=== PATIENT | female | born 1965 | race Caucasian/White ===

== ENCOUNTER 2023-05-26 12:36 | Inpatient (IN) ==
[2023-05-26 14:07] VITALS: BMI 32.5
[2023-05-26] MEDS ORDERED: NS 1,000 ML IV 1,000 ML IV ONE ×2 (14:11)
[2023-05-26 14:53] LABS: BASOPHILS # (AUTO) 0.1 X10^3/uL (0.0-0.1); BASOPHILS % (AUTO) 0.7 % (0.2-1.0); EOSINOPHILS # (AUTO) 3.2 x10^3/uL (0.0-0.2); HEMATOCRIT 28.5 % (36.0-47.0); HEMOGLOBIN 9.6 g/dL (12.0-16.0); LYMPHOCYTES # (AUTO) 1.9 X10^3/uL (1.3-2.9); LYMPHOCYTES % (AUTO) 12.1 % (21.0-51.0); MEAN CORPUSCULAR HEMOGLOBIN 32.1 pg (27.0-34.0); MEAN CORPUSCULAR HGB CONC 33.9 g/dL (33.0-35.0); MEAN CORPUSCULAR VOLUME 94.9 fL (80.0-100.0); MEAN PLATELET VOLUME 10.7 fL (7.4-11.0); MONOCYTES % (AUTO) 6.5 % (0.0-13.0); NEUTROPHILS # (AUTO) 9.1 x10^3/uL (2.2-4.8); NEUTROPHILS % (AUTO) 59.7 % (42.0-75.0); PLATELET COUNT 147 X10^3/uL (150.0-450.0); WHITE BLOOD COUNT 15.3 X10^3/uL (3.6-10.0)
[2023-05-26] MEDS ORDERED: NS 1,000 ML IV 1,000 ML IV SCH (15:00)
[2023-05-26 15:03] LABS: ALANINE AMINOTRANSFERASE 75 Units/L (12-78); ALBUMIN 2.9 g/dL (3.4-5.0); ALKALINE PHOSPHATASE 724 Units/L (46-116); ASPARTATE AMINO TRANSFERASE 56 Units/L (15-37); BLOOD UREA NITROGEN 57 mg/dL (7-18); CALCIUM 8.2 mg/dL (8.5-10.1); CARBON DIOXIDE 22.4 mmol/L (21-32); CHLORIDE 97 mmol/L (98-107); COR CA(FOR HYPOALB) 9.1 mg/dL (8.5-10.1); GLUCOSE 100 mg/dL (65-99); POTASSIUM 3.4 mmol/L (3.5-5.1); SODIUM 132 mmol/L (136-145); TOTAL PROTEIN 5.2 g/dL (6.4-8.2); eGFR NON BLACK RACES 16 (>60)
[2023-05-26 15:11] LABS: INR 1.09 (0.8-1.3)
[2023-05-26 15:18] LABS: LACTIC ACID 1.9 mmol/L (0.4-2.0)
[2023-05-26] MEDS ORDERED: NS 1,000 ML IV 1,000 ML with POTASSIUM CHLORIDE INJ 10 MEQ VIAL 10 MEQ IV PRN ×2 (15:20)
[2023-05-26 15:21] LABS: MAGNESIUM 1.9 mg/dL (2.0-2.9); PHOSPHORUS 3.8 mg/dL (2.6-4.7)
[2023-05-26 15:41] LABS: PLATELET MORPHOLOGY COMMENT NORMAL (NORMAL)
[2023-05-26 15:48] LABS: ABG BASE EXCESS -1.3 mmol/L (-2.0-2.0); ABG HCO3 22.7 mmol/L (22-26)
[2023-05-26 15:49] LABS: ABG ALLEN TEST POS
[2023-05-26] MEDS: NS 1,000 ML IV 1,000 ML with POTASSIUM CHLORIDE INJ 10 MEQ VIAL 10 MEQ IV SCH ×2 (16:15)
[2023-05-26] MEDS: HEPARIN SODIUM INJ 5000 UNITS SC SCH (18:38)
[2023-05-26] MEDS: COLACE CAP 100 MG PO SCH (20:49)
[2023-05-26] MEDS ORDERED: ULTRAM PO PRN (20:51)
[2023-05-26 21:22] LABS: APPEARANCE,URINE CLOUDY (CLEAR); BACTERIA,URINE 2+ /HPF (NEGATIVE); COLOR,URINE ORANGE (YELLOW); HYALINE CASTS, URINE MANY /LPF (NEGATIVE); RENAL EPITHELIAL CELLS,URINE FEW /HPF (NEGATIVE); SQUAMOUS EPITHELIAL CELL,UR FEW /HPF (NEGATIVE)
[2023-05-27] MEDS: NS 1,000 ML IV 1,000 ML with POTASSIUM CHLORIDE INJ 10 MEQ VIAL 10 MEQ IV SCH ×4 (00:05→07:42)
[2023-05-27] MEDS: HEPARIN SODIUM INJ 5000 UNITS SC SCH ×3 (01:56→17:41)
[2023-05-27 05:17] LABS: BASOPHILS % (AUTO) 0.3 % (0.2-1.0); EOSINOPHILS # (AUTO) 4.6 x10^3/uL (0.0-0.2); EOSINOPHILS % (AUTO) 33.4 % (0.9-2.9); HEMATOCRIT 26.7 % (36.0-47.0); HEMOGLOBIN 9.1 g/dL (12.0-16.0); LYMPHOCYTES # (AUTO) 1.4 X10^3/uL (1.3-2.9); LYMPHOCYTES % (AUTO) 10.3 % (21.0-51.0); MEAN CORPUSCULAR HEMOGLOBIN 32.3 pg (27.0-34.0); MEAN CORPUSCULAR HGB CONC 34.1 g/dL (33.0-35.0); MEAN CORPUSCULAR VOLUME 94.6 fL (80.0-100.0); MEAN PLATELET VOLUME 10.8 fL (7.4-11.0); MONOCYTES # (AUTO) 0.6 x10^3/uL (0.3-0.8); MONOCYTES % (AUTO) 4.5 % (0.0-13.0); NEUTROPHILS % (AUTO) 51.5 % (42.0-75.0); PLATELET COUNT 144 X10^3/uL (150.0-450.0); RED BLOOD COUNT 2.82 X10^6/uL (3.5-5.4); RED CELL DISTRIBUTION WIDTH 14.2 % (11.6-16.5); WHITE BLOOD COUNT 13.7 X10^3/uL (3.6-10.0)
[2023-05-27 05:24] LABS: ALANINE AMINOTRANSFERASE 64 Units/L (12-78); ALBUMIN 2.4 g/dL (3.4-5.0); ALKALINE PHOSPHATASE 692 Units/L (46-116); ASPARTATE AMINO TRANSFERASE 72 Units/L (15-37); BLOOD UREA NITROGEN 55 mg/dL (7-18); CALCIUM 7.9 mg/dL (8.5-10.1); CARBON DIOXIDE 23.9 mmol/L (21-32); CHLORIDE 101 mmol/L (98-107); COR CA(FOR HYPOALB) 9.2 mg/dL (8.5-10.1); CREATININE 2.76 mg/dL (0.55-1.02); GLUCOSE 81 mg/dL (65-99); POTASSIUM 3.6 mmol/L (3.5-5.1); SODIUM 134 mmol/L (136-145); TOTAL PROTEIN 4.5 g/dL (6.4-8.2); eGFR NON BLACK RACES 19 (>60)
[2023-05-27 05:44] LABS: BAND NEUTROPHILS % 5 % (0-10)
[2023-05-27 05:45] LABS: PLATELET MORPHOLOGY COMMENT NORMAL (NORMAL); SCHISTOCYTES SLIGHT
[2023-05-27] MEDS: ZOFRAN INJ 4 MG VIAL IVP PRN ×2 (08:12→17:41)
--- NOTE | 2023-05-27 09:03 | EKG ---
Test Reason : HYPOTENSION, SHOCK Blood Pressure : */* mmHG Vent. Rate : 73 BPM Atrial Rate : 73 BPM P-R Int : 180 ms QRS Dur : 94 ms QT Int : 452 ms P-R-T Axes : 56 5 39 degrees QTc Int : 497 ms Normal sinus rhythm Prolonged QT Abnormal ECG Confirmed by Iván Zaidi ([id number]) on 05/28/2023 6:50:44 AM Referred By: Confirmed By: Iván Zaidi
--- NOTE | 2023-05-27 09:14 | RAD ---
HISTORYMyelomaSTUDYAP chestCOMPARISONNoneFINDINGSHeart size normal with clear lungs and pleural spaces. There is no mediastinal or hilar enlargement, pneumonia or CHF. Metallic clothing artifacts are projected over the center of the mediastinum.IMPRESSIONNo active chest disease demonstrated.Electronically signed by: PATRICA DOMINGUEZ (May 27, 2023 09:08:48)
[2023-05-27] MEDS ORDERED: PHARMACY CONSULT - TPN XX SCH (10:00)
--- NOTE | 2023-05-27 10:01 | DR.H&P ---
H&P - History & Physical for Day of: H&P Date: 05/26/23 - Chief Complaint Chief Complaint: WEAKNESS, SYNCOPE, DIZZINESS, LEFT FOOT PAIN AND SWELLING, LOW BLOOD PRESSURE - History of Present Illness History of Present Illness: IS A 58 YEAR OLD PATIENT OF OURS. SHE PRESENTED TO THE OFFICE ON 05/26 WITH COMPLAINTS OF INCREASING WEAKNESS, SYNCOPE, DIZZINESS, LEFT FOOT PAIN AND SWELLING, AND LOW BLOOD PRESSURE. SHE HAS A CURRENT HISTORY OF MULTIPLE MYELOMA AND IS STATUS POST BONE MARROW TRANSPLANT. BONE MARROW TRANSPLANT WAS AT THE END OF FEBRUARY OF THIS YEAR. OTHER PMH INCLUDES: TIA, HTN, ARTHRITIS, RIGHT ARM SURGERY. WHILE IN THE OFFICE, HER BLOOD PRESSURE WAS NOTED TO BE 70s/40s. DECISION WAS MADE TO ADMIT PATIENT TO THE HOSPITAL OBSERVATION STATUS FOR FURTHER EVALUATION AND TREATMENT OF DEHYDRATION, SHOCK, SYNCOPE, GENERALIZED WEAKNESS, MULTIPLE MYELOMA, S/P BONE MARROW TRANSPLANT. ON ARRIVAL TO THE HOSPTIAL, HER VITALS WERE 97.9-90-23-85%RA-79/49. SHE WAS PLACED ON OXYGEN VIA NASAL CANNULA AT 2 LPM. SATURATIONS INCREASED TO THE 90s. LABS WERE OBTAINED. WBC 15.3, RBC 3.00, HGB 9.6, HCT 28.5, PLT COUNT 147, SODIUM 134, POTASSIUM 3.6, CHLORIDE 101, CARBON DIOXIDE 23.9, BUN 55, CREATININE 2.76, GLUCOSE 81, CALCIUM 7.9, TOTAL BILI 2.40, AST 72, ALT 64, ALK PHOS 692, CREATINE KINASE 13, TROPONIN 14.0, TOTAL PROTEIN 4.5, ALBUMIN 2.4. AN ABG WAS OBTAINED AND REVEALED: PH 7.420, PC02 35, P02 120, HC03 22.7, 02 SAT 99, A-A GRADIENT 36, FI02 28. URINALYSIS WAS OBTAINED AND REVEALED: WBC 5-10, RBC 3-5, BACTERIA 2+. A URINE CULTURE WAS SET UP. BLOOD CULTURES WERE ALSO SET UP. A CHEST XRAY WAS OBTAINED AND REVEALED: NO ACTIVE CHEST DISEASE DEMONSTRATED. EKG REVEALED: NORMAL SINUS RHYTHM WITH HR 73 BPM. SHE WAS GIVEN TWO 1 LITER NORMAL SALINE BOLUSES. SHE WAS THEN STARTED ON NORMAL SALINE AT 125 ML/HR, ALBUMIN 25% IV DAILY, INVANZ IV DAILY, HEPARIN 5000 UNITS SC Q8H, COLACE 100MG HX, ZOFRAN 4MG IV Q4H. WE WILL REVIEW HER HOME MEDICATIONS. WE WILL ALSO CONSULT PHARMACY FOR TPN. WE WILL OBTAIN A LEFT FOOT XRAY DUE TO PAIN AND SWELLING. OTHERWISE, WE WILL FOLLOW-UP WITH AM LABS AND CONTINUE TO MONITOR. TIME SPENT ON CLINICAL ASSESSMENT, REVIEWING LABS AND IMAGING, DECISION MAKING, AND DOCUMENTATION GRATER THAN 75 MINUTES. - Past Medical History Past Medical History: Arthritis, Hypertension Additional Medical History: MULTIPLE MYELOMA, TIA - Past Surgical History Surgical History: Ortho Surgery Additional Surgical History: BONE MARROW TRANSPLANT - Family History Family Medical History: Diabetes Mellitus, Heart Failure - Social History Does patient currently use any type of tobacco product: No Have you used tobacco products in the last 12 months: No Alcohol Use: None Drug Use: None - Review of Systems Constitutional: Weakness Eyes: No Symptoms Reported ENT: No Symptoms Reported Respiratory: No Symptoms Reported Cardiovascular: Light Headedness Gastrointestinal: No Symptoms Reported Genitourinary: No Symptoms Reported Musculoskeletal: Foot Pain (LEFT ) Skin: No Symptoms Reported Neurological: Weakness - Physical Exam Vital Signs: Vital Signs Temperature 98.5 F Temperature 98.0 F Pulse Rate 81 Pulse Rate 92 Pulse Rate 82 Pulse Rate 90 Pulse Rate 87 Pulse Rate 91 Pulse Rate 83 Pulse Rate 83 Pulse Rate 85 Pulse Rate 84 Pulse Rate 86 Pulse Rate 81 Pulse Rate 79 Pulse Rate 78 Pulse Rate 93 Pulse Rate 83 Pulse Rate 82 Pulse Rate 82 Pulse Rate 90 Pulse Rate 85 Pulse Rate 89 Pulse Rate 91 Pulse Rate 100 Pulse Rate 94 Pulse Rate 92 Pulse Rate 86 Pulse Rate 83 Pulse Rate 82 Pulse Rate 83 Pulse Rate 80 Pulse Rate 81 Pulse Rate 80 Pulse Rate 81 Pulse Rate 83 Pulse Rate 79 Respiratory Rate 17 Respiratory Rate 19 Respiratory Rate 18 Respiratory Rate 20 Respiratory Rate 19 Respiratory Rate 26 Respiratory Rate 18 Respiratory Rate 21 Respiratory Rate 37 Respiratory Rate 19 Respiratory Rate 19 Respiratory Rate 17 Respiratory Rate 21 Respiratory Rate 17 Respiratory Rate 48 Respiratory Rate 26 Respiratory Rate 19 Respiratory Rate 33 Respiratory Rate 21 Respiratory Rate 19 Respiratory Rate 15 Respiratory Rate 19 Respiratory Rate 19 Respiratory Rate 18 Respiratory Rate 14 Respiratory Rate 18 Respiratory Rate 18 Respiratory Rate 19 Respiratory Rate 27 Respiratory Rate 20 Respiratory Rate 18 Respiratory Rate 17 Respiratory Rate 18 Respiratory Rate 20 Respiratory Rate 20 Blood Pressure 87/48 Blood Pressure 96/54 Blood Pressure 96/54 Blood Pressure 76/46 Blood Pressure 80/48 Blood Pressure 80/48 Blood Pressure 86/52 Blood Pressure 86/52 Blood Pressure 84/46 Blood Pressure 84/46 Blood Pressure 100/56 Blood Pressure 100/56 Blood Pressure 90/55 Blood Pressure 90/55 O2 Sat by Pulse Oximetry 95 O2 Sat by Pulse Oximetry 95 O2 Sat by Pulse Oximetry 94 O2 Sat by Pulse Oximetry 94 O2 Sat by Pulse Oximetry 96 O2 Sat by Pulse Oximetry 96 O2 Sat by Pulse Oximetry 96 O2 Sat by Pulse Oximetry 96 O2 Sat by Pulse Oximetry 96 O2 Sat by Pulse Oximetry 91 O2 Sat by Pulse Oximetry 100 O2 Sat by Pulse Oximetry 100 O2 Sat by Pulse Oximetry 98 O2 Sat by Pulse Oximetry 98 O2 Sat by Pulse Oximetry 96 O2 Sat by Pulse Oximetry 95 O2 Sat by Pulse Oximetry 95 O2 Sat by Pulse Oximetry 97 O2 Sat by Pulse Oximetry 95 O2 Sat by Pulse Oximetry 96 O2 Sat by Pulse Oximetry 96 O2 Sat by Pulse Oximetry 96 O2 Sat by Pulse Oximetry 96 O2 Sat by Pulse Oximetry 96 O2 Sat by Pulse Oximetry 96 O2 Sat by Pulse Oximetry 96 O2 Sat by Pulse Oximetry 97 O2 Sat by Pulse Oximetry 97 O2 Sat by Pulse Oximetry 97 O2 Sat by Pulse Oximetry 97 O2 Sat by Pulse Oximetry 96 O2 Sat by Pulse Oximetry 96 O2 Sat by Pulse Oximetry 96 O2 Sat by Pulse Oximetry 96 O2 Sat by Pulse Oximetry 96 Oriented: Normal Eyes: Normal Ear: Normal Nose: Normal Throat: Normal Respiratory: Diminished Throughout Cardiovascular: Normal : Normal Auscultation: Bowel Sounds: Normal Palpation: Normal Tenderness: Normal Skin: Decreased Turgur Musculoskeletal: Left, Foot, Swelling, Tender Psychiatric: Normal Mood Description: Calm Affect: Normal Speech Pattern: Clear - Assessment/Plan (1) Acute renal failure Qualifiers: Acute renal failure type: unspecified Qualified Code(s): N17.9 - Acute kidney failure, unspecified Status: Acute Plan: ADMIT, NORMAL SALINE AT 125 ML/HR, ALBUMIN 25% IV DAILY, INVANZ IV DAILY, HEPARIN 5000 UNITS SC Q8H, COLACE 100MG HX, ZOFRAN 4MG IV Q4H. REVIEW HOME MEDICATIONS. CONSULT PHARMACY FOR TPN. PT/OT (2) Urinary tract infection Qualifiers: Urinary tract infection type: acute cystitis Hematuria presence: with hematuria Qualified Code(s): N30.01 - Acute cystitis with hematuria Status: Acute (3) Shock Status: Acute (4) Syncope Qualifiers: Syncope type: unspecified Qualified Code(s): R55 - Syncope and collapse Status: Acute (5) Generalized weakness Status: Acute (6) Multiple myeloma Qualifiers: Multiple myeloma remission status: unspecified Qualified Code(s): C90.00 - Multiple myeloma not having achieved remission Status: Chronic (7) Status post bone marrow transplant Status: Chronic Plan: REVERSE PRECAUTIONS - Allergies Allergies/Adverse Reactions: Allergies Allergy/AdvReac Type Severity Reaction Status Date / Time No Known Drug Allergies Allergy Unknown Verified 07/10/20 11:14 Sulfa (Sulfonamide Allergy Verified 09/02/22 18:00 Antibiotics) [SULFA] - Medications Home Medications: Home Medications Medication Instructions Recorded Confirmed losartan 50 mg-hydrochlorothiazide 1 tab PO QDAY 09/02/22 09/02/22 12.5 mg tablet meloxicam 15 mg tablet 1 tab PO QDAY 09/02/22 09/02/22 tramadol 50 mg tablet 1 - 2 tab PO TID 09/02/22 09/02/22
[2023-05-27] MEDS: INVanz INJ 1 GRAM VIAL 0.5 G in NS 100 ML IV 100 ML IV SCH (10:02)
[2023-05-27] MEDS ORDERED: DEXTROSE 10% 1,000 ML IV PRN (10:29)
[2023-05-27] MEDS ORDERED: NovoLIN R (or HumuLIN R) SUBCUT PRN (10:29)
[2023-05-27 10:47] LABS: MAGNESIUM 1.8 mg/dL (2.0-2.9); PHOSPHORUS 3.6 mg/dL (2.6-4.7)
[2023-05-27] MEDS: ALBUMIN HUMAN 25%- 100 ML 100 ML IV SCH (11:06)
[2023-05-27] MEDS ORDERED: DRUG FILTER EXTENSION SET ONE (12:23)
[2023-05-27] MEDS: MVI IV SCH ×8 (12:35→22:11)
[2023-05-27] MEDS: TRACE ELEMENTS IV SCH ×8 (12:35→22:11)
[2023-05-27] MEDS: [UNRECOGNIZED DRUG - OTHER] IV SCH ×8 (12:35→22:11)
[2023-05-27] MEDS: CLINIMIX IV SCH ×8 (12:35→22:11)
[2023-05-27] MEDS: NS 1,000 ML IV 1,000 ML IV SCH (12:36)
--- NOTE | 2023-05-27 14:12 | RAD ---
FOOT, LEFTHISTORY: LEFT FOOT PAINStudy: 3 views of the left foot.Comparison:NoneFindings:No acute fracture or dislocation. Extensive midfoot arthritis. Mild swelling.IMPRESSION:1. No acute abnormalities in the left foot.Electronically signed by: AYSHA LEVY (May 27, 2023 14:11:04)
[2023-05-27] MEDS: COLACE CAP 100 MG PO SCH (20:19)
[2023-05-28] MEDS: HEPARIN SODIUM INJ 5000 UNITS SC SCH ×3 (02:24→18:15)
[2023-05-28 05:13] LABS: BASOPHILS # (AUTO) 0.1 X10^3/uL (0.0-0.1); BASOPHILS % (AUTO) 0.8 % (0.2-1.0); EOSINOPHILS # (AUTO) 4.8 x10^3/uL (0.0-0.2); EOSINOPHILS % (AUTO) 30.9 % (0.9-2.9); HEMATOCRIT 23.5 % (36.0-47.0); HEMOGLOBIN 8.1 g/dL (12.0-16.0); LYMPHOCYTES # (AUTO) 2.2 X10^3/uL (1.3-2.9); LYMPHOCYTES % (AUTO) 14.2 % (21.0-51.0); MEAN CORPUSCULAR HEMOGLOBIN 32.1 pg (27.0-34.0); MEAN CORPUSCULAR HGB CONC 34.3 g/dL (33.0-35.0); MEAN CORPUSCULAR VOLUME 93.7 fL (80.0-100.0); MEAN PLATELET VOLUME 10.6 fL (7.4-11.0); MONOCYTES % (AUTO) 6.8 % (0.0-13.0); NEUTROPHILS # (AUTO) 7.3 x10^3/uL (2.2-4.8); NEUTROPHILS % (AUTO) 47.3 % (42.0-75.0); PLATELET COUNT 164 X10^3/uL (150.0-450.0); RED BLOOD COUNT 2.51 X10^6/uL (3.5-5.4); RED CELL DISTRIBUTION WIDTH 14.1 % (11.6-16.5); WHITE BLOOD COUNT 15.4 X10^3/uL (3.6-10.0)
[2023-05-28 05:24] LABS: PREALBUMIN 5.7 mg/dL (18-35.7)
[2023-05-28 05:33] LABS: ALBUMIN 2.4 g/dL (3.4-5.0); CALCIUM 8.1 mg/dL (8.5-10.1); CARBON DIOXIDE 24.1 mmol/L (21-32); COR CA(FOR HYPOALB) 9.4 mg/dL (8.5-10.1); CREATININE 1.56 mg/dL (0.55-1.02); POTASSIUM 3.4 mmol/L (3.5-5.1); TOTAL PROTEIN 4.3 g/dL (6.4-8.2)
[2023-05-28 06:08] LABS: BAND NEUTROPHILS % 3 % (0-10)
[2023-05-28 06:09] LABS: PLATELET MORPHOLOGY COMMENT NORMAL (NORMAL); SCHISTOCYTES SLIGHT
[2023-05-28] MEDS ORDERED: CONSULT PHARMACY - POTASSIUM & MAGNESIUM XX ONE (07:00)
[2023-05-28] MEDS: INVanz INJ 1 GRAM VIAL 0.5 G in NS 100 ML IV 100 ML IV SCH (08:31)
[2023-05-28] MEDS: ALBUMIN HUMAN 25%- 100 ML 100 ML IV SCH (08:31)
[2023-05-28] MEDS ORDERED: MICRO K EXTEN CAP 10 MEQ PO SCH (09:00)
[2023-05-28] MEDS: NS 1,000 ML IV 1,000 ML IV SCH (09:52)
[2023-05-28] MEDS ORDERED: NS 1,000 ML IV 1,000 ML IV ONE (10:35)
[2023-05-28] MEDS: MVI IV SCH ×10 (14:20→18:32)
[2023-05-28] MEDS: [UNRECOGNIZED DRUG - OTHER] IV SCH ×10 (14:20→18:32)
[2023-05-28] MEDS: TRACE ELEMENTS IV SCH ×10 (14:20→18:32)
[2023-05-28] MEDS: CLINIMIX IV SCH ×10 (14:20→18:32)
[2023-05-28] MEDS ORDERED: DAPSONE PO SCH (16:00)
[2023-05-28] MEDS: ZOFRAN INJ 4 MG VIAL IVP PRN (18:45)
--- NOTE | 2023-05-28 19:40 | PCM.PROG ---
Progress Note - Progress Note for Day of Date of Exam: 05/28/23 - Subjective Subjective: IS CURRENTLY INPATIENT STATUS FOR TREATMENT OF ACUTE RENAL FAILURE, UTI, SHOCK, SYNCOPE, AND GENERALIZED WEAKNESS. SHE HAS A HISTORY OF MULTIPLE MYELOMA AND IS STATUS POST BONE MARROW TRANSPLANT. TODAY, SHE IS ALERT AND ORIENTED, LYING IN BED ON MORNING ROUNDS. SHE CONTINUES WITH C OMPLAINTS OF GENERALIZED WEAKNESS AND LEFT FOOT PAIN. SHE ALSO REPORTS LOW BACK PAIN AT TIMES. SHE REPORTS ONLY SLIGHT IMPROVEMENT IN SYMPTOMS SINCE ADMISSION. SHE HAS REMAINED HYPOTENSIVE THIS MORNING AND THROUGHOUT THE NIGHT. ON EXAMINATION, HEART IS REGULAR IN RATE AND RHYTHM. BILATERAL LUNGS ARE NOTED WITH DIMINISHED LUNG SOUNDS THROUGHOUT. ABDOMEN IS ROUND, SOFT, AND NON-TENDER WITH NORMAL BOWEL SOUNDS NOTED IN ALL QUADRANTS. GOOD MOVEMENT NOTED TO UPPER AND LOWER EXTREMITIES. TRACE EDEMA NOTED TO LEFT FOOT. HER VITALS THIS MORNING ARE: 98.6-84-23-93%-96/52. LABS WERE OBTAINED. WBC 15.4, RBC 2.51, HGB 8.1, HCT 25.5, PLT COUNT 164, SODIUM 135, POTASSIUM 3.4, CHLORIDE 102, BUN 46, CREATININE 1.56, GLUCOSE 117, CALCIUM 8.1, TOTAL BILI 3.20, AST 73, ALT 57, ALK PHOS 6.9, TOTAL PROTEIN 4.3, ALBUMIN 2.4. BLOOD AND URINE CULTURES ARE PENDING. A FOOT XRAY WAS OBTAINED YESTERDAY AND WAS NEGATIVE FOR ACUTE ABNORMALITY. SHE IS CURRENTLY RECEIVING NORMAL SALINE AT 20 ML/HR, TPN AT 100 ML/HR, ALBUMIN 25% IV DAILY, INVANZ IV DAILY, HEPARIN 5000 UNITS SC Q8H, COLACE 100MG HS, ZOFRAN 4MG IV Q4H. WE WILL RESUME HER HOME MEDICATIONS OF ZOVIRAX, DAPSONE, AND ULTRAM. TODAY, WE WILL GIVE HER A ONE LITER BOLUS OF NORMAL SALINE. OTHERWISE, WE WILL CONTINUE WITH CURRENT PLAN OF CARE. WE WILL FOLLOW-UP WITH AM LABS AND CHEST XRAY AND CONTINUE TO MONITOR. TIME SPENT ON CLINICAL ASSESSMENT, REVIEWING LABS AND IMAGING, DECISION MAKING, AND DOCUMENTATION GREATER THAN 45 MINUTES. - Past Medical Family Social History Past Med/Fam/Surg Hx: No changes since H&P Allergies: Allergies No Known Drug Allergies Allergy (Unknown, Verified 07/10/20 11:14) Onset Date: 07/10/2020 Sulfa (Sulfonamide Antibiotics) [SULFA] Allergy (Verified 09/02/22 18:00) - Review of Systems ROS: No change since H&P - Vital Signs and I&O's Vital Signs: Vital Signs Temperature 98.5 F Pulse Rate 86 Pulse Rate 85 Pulse Rate 78 Pulse Rate 82 Pulse Rate 77 Pulse Rate 81 Pulse Rate 80 Pulse Rate 83 Respiratory Rate 25 Respiratory Rate 26 Respiratory Rate 22 Respiratory Rate 24 Respiratory Rate 22 Respiratory Rate 23 Respiratory Rate 21 Respiratory Rate 24 Blood Pressure 119/65 Blood Pressure 91/53 Blood Pressure 98/54 Blood Pressure 91/54 Blood Pressure 90/53 Blood Pressure 96/56 Blood Pressure 84/52 O2 Sat by Pulse Oximetry 94 O2 Sat by Pulse Oximetry 94 O2 Sat by Pulse Oximetry 95 O2 Sat by Pulse Oximetry 93 O2 Sat by Pulse Oximetry 93 O2 Sat by Pulse Oximetry 94 O2 Sat by Pulse Oximetry 94 O2 Sat by Pulse Oximetry 97 Intake and Output: Intake & Output 05/26/23 05/27/23 05/28/23 05/29/23 11:59 11:59 11:59 11:59 Intake Total 3040 / 3040 3302 / 3302 1809 / 1809 Output Total 900 / 900 Balance 3040 / 3040 2402 / 2402 1809 / 1809 - Physical Exam Oriented: Normal Eyes: Normal Ear: Normal Nose: Normal Throat: Normal Respiratory: Diminished Cardiovascular: Normal : Normal Auscultation: Bowel Sounds: Normal Tenderness: Normal Skin: Decreased Turgur Musculoskeletal: Left, Foot, Swelling, Tender Psychiatric: Normal Mood Description: Calm Affect: Normal Speech Pattern: Clear, Appropriate - Laboratory and Diagnostics Result Diagrams: 05/28/23 04:13 05/28/23 04:13 Labs: 05/26/23 14:26 Blood Blood Culture - Preliminary 05/26/23 14:36 Blood Blood Culture - Preliminary 05/26/23 20:10 Urine,Clean Catch Urine Culture - Final Laboratory WBC 15.4 X10^3/uL (3.6-10.0) H 05/28/23 04:13 RBC 2.51 X10^6/uL (3.5-5.4) L 05/28/23 04:13 Hgb 8.1 g/dL (12.0-16.0) L 05/28/23 04:13 Hct 23.5 % (36.0-47.0) L 05/28/23 04:13 MCV 93.7 fL (80.0-100.0) 05/28/23 04:13 MCH 32.1 pg (27.0-34.0) 05/28/23 04:13 MCHC 34.3 g/dL (33.0-35.0) 05/28/23 04:13 RDW 14.1 % (11.6-16.5) 05/28/23 04:13 Plt Count 164 X10^3/uL (150.0-450.0) 05/28/23 04:13 Plt Count Comment Adequate (ADEQUATE) 05/28/23 04:13 MPV 10.6 fL (7.4-11.0) 05/28/23 04:13 Neut % (Auto) 47.3 % (42.0-75.0) 05/28/23 04:13 Lymph % (Auto) 14.2 % (21.0-51.0) L 05/28/23 04:13 [place] % (Auto) 6.8 % (0.0-13.0) 05/28/23 04:13 Eos % (Auto) 30.9 % (0.9-2.9) H 05/28/23 04:13 Baso % (Auto) 0.8 % (0.2-1.0) 05/28/23 04:13 Neut # (Auto) 7.3 x10^3/uL (2.2-4.8) H 05/28/23 04:13 Lymph # (Auto) 2.2 X10^3/uL (1.3-2.9) 05/28/23 04:13 [place] # (Auto) 1.0 x10^3/uL (0.3-0.8) H 05/28/23 04:13 Eos # (Auto) 4.8 x10^3/uL (0.0-0.2) H 05/28/23 04:13 Baso # (Auto) 0.1 X10^3/uL (0.0-0.1) 05/28/23 04:13 Absolute Nucleated RBC 0.0 /100WBC 05/28/23 04:13 Total Counted 100 05/28/23 04:13 Neutrophils % (Manual) 49 % (39-76) 05/28/23 04:13 Band Neutrophils % 3 % (0-10) 05/28/23 04:13 Lymphocytes % (Manual) 13 % (13-43) 05/28/23 04:13 Monocytes % (Manual) 5 % (4-9) 05/28/23 04:13 Eosinophils % (Manual) 30 % (0-6) H 05/28/23 04:13 Plt Morphology Comment Normal (NORMAL) 05/28/23 04:13 RBC Morphology Abnormal (NORMAL) A 05/28/23 04:13 Acanthocytes (Spur) Present 05/26/23 14:36 Schistocytes Slight A 05/28/23 04:13 PT 13.9 SECONDS (11.8-14.3) 05/26/23 14:36 INR Target Range - 05/26/23 14:36 INR 1.09 (0.8-1.3) 05/26/23 14:36 APTT 38.5 SECONDS (22.9-36.5) H 05/26/23 14:36 PTT Comment - 05/26/23 14:36 Sample Site Rr 05/26/23 15:43 ABG pH 7.420 (7.35-7.45) 05/26/23 15:43 ABG pCO2 35.0 mmHg (35.0-45.0) 05/26/23 15:43 ABG pO2 120.0 mmHg (80.0-100.0) H 05/26/23 15:43 ABG HCO3 22.7 mmol/L (22-26) 05/26/23 15:43 ABG O2 Saturation 99.0 % (90-100) 05/26/23 15:43 ABG Base Excess -1.3 mmol/L (-2.0-2.0) 05/26/23 15:43 Karel Test Pos 05/26/23 15:43 A-a Gradient 36.0 mmHg 05/26/23 15:43 FiO2 28.0 05/26/23 15:43 Blood Gas Comments Pt amarilys well cdn 05/26/23 15:43 Sodium 135 mmol/L (136-145) L 05/28/23 04:13 Corrected Sodium 135 mmol/L (136-145) L 05/28/23 04:13 Potassium 3.4 mmol/L (3.5-5.1) L 05/28/23 04:13 Chloride 102 mmol/L (98-107) 05/28/23 04:13 Carbon Dioxide 24.1 mmol/L (21-32) 05/28/23 04:13 BUN 46 mg/dL (7-18) H 05/28/23 04:13 Creatinine 1.56 mg/dL (0.55-1.02) H 05/28/23 04:13 Est GFR (MDRD) Af Amer 44 (>60) L 05/28/23 04:13 Est GFR (MDRD) Non-Af 36 (>60) L 05/28/23 04:13 Glucose 117 mg/dL (65-99) H 05/28/23 04:13 Lactic Acid 1.5 mmol/L (0.4-2.0) 05/27/23 15:18 Calcium 8.1 mg/dL (8.5-10.1) L 05/28/23 04:13 Corrected Calcium 9.4 mg/dL (8.5-10.1) 05/28/23 04:13 Phosphorus 3.6 mg/dL (2.6-4.7) 05/27/23 04:21 Magnesium 1.8 mg/dL (2.0-2.9) L 05/27/23 04:21 Total Bilirubin 3.20 mg/dL (0.2-1.0) H 05/28/23 04:13 AST 73 Units/L (15-37) H 05/28/23 04:13 ALT 57 Units/L (12-78) 05/28/23 04:13 Alkaline Phosphatase 609 Units/L (46-116) H 05/28/23 04:13 Creatine Kinase 13 Units/L (26-192) L 05/27/23 03:06 Troponin I High Sens 14.0 ng/L (4.0-60.0) 05/27/23 03:06 Total Protein 4.3 g/dL (6.4-8.2) L 05/28/23 04:13 Albumin 2.4 g/dL (3.4-5.0) L 05/28/23 04:13 Globulin 1.9 g/dL (2.5-4.5) L 05/28/23 04:13 Albumin/Globulin Ratio 1.3 Ratio (1.1-2.1) 05/28/23 04:13 Prealbumin 5.7 mg/dL (18-35.7) L 05/28/23 04:13 Triglycerides 146 mg/dL (0-150) 05/27/23 04:21 Amylase 13 Units/L (25-115) L 05/26/23 14:36 Lipase 29 Units/L (73-393) L 05/26/23 14:36 Specimen Type Clean catch urine 05/26/23 20:10 Urine Color [place] (YELLOW) 05/26/23 20:10 Urine Appearance Cloudy (CLEAR) 05/26/23 20:10 Urine pH Cancelled 05/26/23 20:10 Ur Specific [place] Cancelled 05/26/23 20:10 Urine Protein Cancelled 05/26/23 20:10 Urine Glucose (UA) Cancelled 05/26/23 20:10 Urine Ketones Cancelled 05/26/23 20:10 Urine Blood Cancelled 05/26/23 20:10 Urine Nitrite Cancelled 05/26/23 20:10 Urine Bilirubin Cancelled 05/26/23 20:10 Urine Urobilinogen Cancelled 05/26/23 20:10 Ur Leukocyte Esterase Cancelled 05/26/23 20:10 Urine RBC 3-5 /HPF (0-3) A 05/26/23 20:10 Urine WBC 5-10 /HPF (0-5) A 05/26/23 20:10 Ur Squamous Epith Cells Few /HPF (NEGATIVE) 05/26/23 20:10 Ur Renal Epithelial Cell Few /HPF (NEGATIVE) 05/26/23 20:10 Urine Bacteria 2+ /HPF (NEGATIVE) 05/26/23 20:10 Hyaline Casts Many /LPF (NEGATIVE) 05/26/23 20:10 Ur Culture Indicated? Yes/culture set up 05/26/23 20:10 - Plan (1) Acute renal failure Status: Acute Qualifiers: Acute renal failure type: unspecified Qualified Code(s): N17.9 - Acute kidney failure, unspecified Plan: NORMAL SALINE AT 20 ML/HR,TPN AT 100 ML/HR, ALBUMIN 25% IV DAILY, INVANZ IV DAILY, HEPARIN 5000 UNITS SC Q8H, COLACE 100MG HX, ZOFRAN 4MG IV Q4H. RESUME HOME MEDICATIONS. PT/OT (2) Urinary tract infection Status: Acute Qualifiers: Urinary tract infection type: acute cystitis Hematuria presence: with hematuria Qualified Code(s): N30.01 - Acute cystitis with hematuria (3) Shock Status: Acute (4) Syncope Status: Acute Qualifiers: Syncope type: unspecified Qualified Code(s): R55 - Syncope and collapse (5) Generalized weakness Status: Acute (6) Multiple myeloma Status: Chronic Qualifiers: Multiple myeloma remission status: unspecified Qualified Code(s): C90.00 - Multiple myeloma not having achieved remission (7) Status post bone marrow transplant Status: Chronic Plan: REVERSE PRECAUTIONS
[2023-05-28] MEDS: COLACE CAP 100 MG PO SCH (20:58)
[2023-05-28] MEDS: DAPSONE PO SCH (20:58)
[2023-05-28] MEDS: ZOVIRAX PO SCH (20:59)
[2023-05-28] MEDS: ULTRAM PO PRN (21:07)
[2023-05-29] MEDS: CLINIMIX IV SCH ×18 (00:56→20:57)
[2023-05-29] MEDS: TRACE ELEMENTS IV SCH ×18 (00:56→20:57)
[2023-05-29] MEDS: MVI IV SCH ×18 (00:56→20:57)
[2023-05-29] MEDS: [UNRECOGNIZED DRUG - OTHER] IV SCH ×18 (00:56→20:57)
[2023-05-29] MEDS: HEPARIN SODIUM INJ 5000 UNITS SC SCH ×3 (02:14→18:22)
[2023-05-29 05:14] LABS: BASOPHILS # (AUTO) 0.1 X10^3/uL (0.0-0.1); BASOPHILS % (AUTO) 0.7 % (0.2-1.0); EOSINOPHILS # (AUTO) 6.3 x10^3/uL (0.0-0.2); EOSINOPHILS % (AUTO) 32.9 % (0.9-2.9); HEMATOCRIT 23.9 % (36.0-47.0); HEMOGLOBIN 8.2 g/dL (12.0-16.0); LYMPHOCYTES # (AUTO) 2.9 X10^3/uL (1.3-2.9); MEAN CORPUSCULAR HEMOGLOBIN 32.1 pg (27.0-34.0); MEAN CORPUSCULAR HGB CONC 34.2 g/dL (33.0-35.0); MEAN PLATELET VOLUME 10.1 fL (7.4-11.0); MONOCYTES # (AUTO) 1.3 x10^3/uL (0.3-0.8); MONOCYTES % (AUTO) 6.9 % (0.0-13.0); NEUTROPHILS # (AUTO) 8.6 x10^3/uL (2.2-4.8); NEUTROPHILS % (AUTO) 44.5 % (42.0-75.0); PLATELET COUNT 175 X10^3/uL (150.0-450.0); RED BLOOD COUNT 2.54 X10^6/uL (3.5-5.4); RED CELL DISTRIBUTION WIDTH 14.5 % (11.6-16.5); WHITE BLOOD COUNT 19.2 X10^3/uL (3.6-10.0)
[2023-05-29 05:43] LABS: ALANINE AMINOTRANSFERASE 68 Units/L (12-78); ALBUMIN 2.5 g/dL (3.4-5.0); ALKALINE PHOSPHATASE 575 Units/L (46-116); ASPARTATE AMINO TRANSFERASE 85 Units/L (15-37); BLOOD UREA NITROGEN 30 mg/dL (7-18); CALCIUM 8.3 mg/dL (8.5-10.1); CARBON DIOXIDE 24.2 mmol/L (21-32); CHLORIDE 104 mmol/L (98-107); COR CA(FOR HYPOALB) 9.5 mg/dL (8.5-10.1); COR NA(FOR HYPERGLY) 136 mmol/L (136-145); CREATININE 1.08 mg/dL (0.55-1.02); GLUCOSE 113 mg/dL (65-99); POTASSIUM 3.8 mmol/L (3.5-5.1); SODIUM 136 mmol/L (136-145); TOTAL PROTEIN 4.3 g/dL (6.4-8.2); eGFR NON BLACK RACES 55 (>60)
[2023-05-29 05:44] LABS: BAND NEUTROPHILS % 3 % (0-10); PLATELET MORPHOLOGY COMMENT NORMAL (NORMAL)
[2023-05-29 05:45] LABS: SCHISTOCYTES PRESENT
[2023-05-29] MEDS ORDERED: CONSULT PHARMACY - POTASSIUM & MAGNESIUM XX SCH (06:00)
[2023-05-29] MEDS: ALBUMIN HUMAN 25%- 100 ML 100 ML IV SCH (08:12)
[2023-05-29] MEDS: ZOVIRAX PO SCH ×2 (08:12→20:46)
[2023-05-29] MEDS: INVanz INJ 1 GRAM VIAL 0.5 G in NS 100 ML IV 100 ML IV SCH (08:12)
[2023-05-29] MEDS: MAG-OX TAB PO SCH ×2 (08:19→20:46)
[2023-05-29] MEDS: ZOFRAN INJ 4 MG VIAL IVP PRN ×2 (08:19→19:13)
[2023-05-29] MEDS: NS 1,000 ML IV 1,000 ML IV SCH (08:22)
[2023-05-29] MEDS ORDERED: K-DUR TAB 20 MEQ PO SCH (09:00)
[2023-05-29] MEDS: DAPSONE PO SCH (20:45)
[2023-05-29] MEDS: LIPOSYN III 20% 100ML 100 ML IV SCH (20:45)
[2023-05-29] MEDS: COLACE CAP 100 MG PO SCH (20:47)
[2023-05-29] MEDS: ULTRAM PO PRN (20:48)
--- NOTE | 2023-05-29 23:32 | PCM.PROG ---
Progress Note - Progress Note for Day of Date of Exam: 05/29/23 - Subjective Subjective: IS CURRENTLY INPATIENT STATUS FOR TREATMENT OF ACUTE RENAL FAILURE, UTI, SHOCK, SYNCOPE, AND GENERALIZED WEAKNESS. SHE HAS A HISTORY OF MULTIPLE MYELOMA AND IS STATUS POST BONE MARROW TRANSPLANT. TODAY, SHE IS ALERT AND ORIENTED, LYING IN BED ON MORNING ROUNDS. SHE CONTINUES WITH C OMPLAINTS OF GENERALIZED WEAKNESS. SHE ALSO REPORTS LOW BACK PAIN AND SORE THROAT AT TIMES. SHE REPORTS ONLY SLIGHT IMPROVEMENT IN SYMPTOMS SINCE ADMISSION. SHE CONTINUES TO BE HYPOTENSIVE THIS MORNING. ON EXAMINATION, HEART IS REGULAR IN RATE AND RHYTHM. BILATERAL LUNGS ARE NOTED WITH DIMINISHED LUNG SOUNDS THROUGHOUT. ABDOMEN IS ROUND, SOFT, AND NON-TENDER WITH NORMAL BOWEL SOUNDS NOTED IN ALL QUADRANTS. GOOD MOVEMENT NOTED TO UPPER AND LOWER EXTREMITIES. TRACE EDEMA NOTED TO LEFT FOOT. HER VITALS THIS MORNING ARE: 99.3-87-24-93%-105/55. LABS WERE OBTAINED. WBC 19.2, RBC 2.54, HGB 8.2, HCT 2 3.9, PLT COUNT 175, SODIUM 136, POTASSIUM 3.8, CHLORIDE 104, BUN 30, CREATININE 1.08, GLUCOSE 113, CALCIUM 8.3, MAGNESIUM 1.9, TOTAL BILI 5.10, AST 85, ALT 68, ALK PHOS 575, TOTAL PROTEIN 4.3, ALBUMIN 2.5. BLOOD AND URINE CULTURES ARE PENDING. SHE IS CURRENTLY RECEIVING NORMAL SALINE AT 20 ML/HR, TPN AT 100 ML/HR, ALBUMIN 25% IV DAILY, INVANZ IV DAILY, HEPARIN 5000 UNITS SC Q8H, COLACE 100MG HS, ZOFRAN 4MG IV Q4H. HER HOME MEDICATIONS OF ZOVIRAX, DAPSONE, AND ULTRAM WERE RESUMED. WE WILL CONTINUE WITH CURRENT PLAN OF CARE TODAY. OTHERWISE, WE WILL FOLLOW-UP WITH AM LABS AND CHEST XRAY AND CONTINUE TO MONITOR. TIME SPENT ON CLINICAL ASSESSMENT, REVIEWING LABS AND IMAGING, DECISION MAKING, AND DOCUMENTATION GREATER THAN 45 MINUTES. - Past Medical Family Social History Past Med/Fam/Surg Hx: No changes since H&P Allergies: Allergies No Known Drug Allergies Allergy (Unknown, Verified 07/10/20 11:14) Onset Date: 07/10/2020 Sulfa (Sulfonamide Antibiotics) [SULFA] Allergy (Verified 09/02/22 18:00) - Review of Systems ROS: No change since H&P - Vital Signs and I&O's Vital Signs: Vital Signs Temperature 98.7 F Temperature 98.5 F Temperature 98.0 F Pulse Rate 99 Pulse Rate 89 Pulse Rate 85 Pulse Rate 82 Pulse Rate 82 Pulse Rate 84 Pulse Rate 89 Pulse Rate 76 Respiratory Rate 32 Respiratory Rate 23 Respiratory Rate 23 Respiratory Rate 35 Respiratory Rate 18 Respiratory Rate 30 Respiratory Rate 27 Respiratory Rate 20 Respiratory Rate 20 Respiratory Rate 26 Blood Pressure 101/59 Blood Pressure 101/54 Blood Pressure 111/61 Blood Pressure 115/60 Blood Pressure 108/57 Blood Pressure 95/61 Blood Pressure 97/62 O2 Sat by Pulse Oximetry 93 O2 Sat by Pulse Oximetry 93 O2 Sat by Pulse Oximetry 95 O2 Sat by Pulse Oximetry 95 O2 Sat by Pulse Oximetry 95 O2 Sat by Pulse Oximetry 94 O2 Sat by Pulse Oximetry 96 O2 Sat by Pulse Oximetry 95 Intake and Output: Intake & Output 05/27/23 05/28/23 05/29/23 05/30/23 11:59 11:59 11:59 11:59 Intake Total 3040 / 3040 3302 / 3302 3634 / 3634 1441 / 1441 Output Total 900 / 900 950 / 950 Balance 3040 / 3040 2402 / 2402 2684 / 2684 1441 / 1441 - Physical Exam Oriented: Normal Eyes: Normal Ear: Normal Nose: Normal Throat: Normal Respiratory: Diminished Cardiovascular: Normal : Normal Auscultation: Bowel Sounds: Normal Palpation: Normal Tenderness: Normal Skin: Decreased Turgur Musculoskeletal: Left, Foot, Swelling, Tender Psychiatric: Normal Mood Description: Calm Affect: Normal Speech Pattern: Clear, Appropriate - Laboratory and Diagnostics Result Diagrams: 05/29/23 04:30 05/29/23 04:30 Labs: 05/26/23 14:36 Blood Blood Culture - Preliminary 05/26/23 14:26 Blood Blood Culture - Preliminary 05/26/23 20:10 Urine,Clean Catch Urine Culture - Final Laboratory WBC 19.2 X10^3/uL (3.6-10.0) H 05/29/23 04:30 RBC 2.54 X10^6/uL (3.5-5.4) L 05/29/23 04:30 Hgb 8.2 g/dL (12.0-16.0) L 05/29/23 04:30 Hct 23.9 % (36.0-47.0) L 05/29/23 04:30 MCV 94.0 fL (80.0-100.0) 05/29/23 04:30 MCH 32.1 pg (27.0-34.0) 05/29/23 04:30 MCHC 34.2 g/dL (33.0-35.0) 05/29/23 04:30 RDW 14.5 % (11.6-16.5) 05/29/23 04:30 Plt Count 175 X10^3/uL (150.0-450.0) 05/29/23 04:30 Plt Count Comment Adequate (ADEQUATE) 05/29/23 04:30 MPV 10.1 fL (7.4-11.0) 05/29/23 04:30 Neut % (Auto) 44.5 % (42.0-75.0) 05/29/23 04:30 Lymph % (Auto) 15.0 % (21.0-51.0) L 05/29/23 04:30 [place] % (Auto) 6.9 % (0.0-13.0) 05/29/23 04:30 Eos % (Auto) 32.9 % (0.9-2.9) H 05/29/23 04:30 Baso % (Auto) 0.7 % (0.2-1.0) 05/29/23 04:30 Neut # (Auto) 8.6 x10^3/uL (2.2-4.8) H 05/29/23 04:30 Lymph # (Auto) 2.9 X10^3/uL (1.3-2.9) 05/29/23 04:30 [place] # (Auto) 1.3 x10^3/uL (0.3-0.8) H 05/29/23 04:30 Eos # (Auto) 6.3 x10^3/uL (0.0-0.2) H 05/29/23 04:30 Baso # (Auto) 0.1 X10^3/uL (0.0-0.1) 05/29/23 04:30 Absolute Nucleated RBC 0.1 /100WBC 05/29/23 04:30 Total Counted 100 05/29/23 04:30 Neutrophils % (Manual) 45 % (39-76) 05/29/23 04:30 Band Neutrophils % 3 % (0-10) 05/29/23 04:30 Lymphocytes % (Manual) 9 % (13-43) L 05/29/23 04:30 Monocytes % (Manual) 4 % (4-9) 05/29/23 04:30 Eosinophils % (Manual) 39 % (0-6) H 05/29/23 04:30 Plt Morphology Comment Normal (NORMAL) 05/29/23 04:30 RBC Morphology Abnormal (NORMAL) A 05/29/23 04:30 Acanthocytes (Spur) Present 05/26/23 14:36 Schistocytes Present 05/29/23 04:30 PT 13.9 SECONDS (11.8-14.3) 05/26/23 14:36 INR Target Range - 05/26/23 14:36 INR 1.09 (0.8-1.3) 05/26/23 14:36 APTT 38.5 SECONDS (22.9-36.5) H 05/26/23 14:36 PTT Comment - 05/26/23 14:36 Sample Site Rr 05/26/23 15:43 ABG pH 7.420 (7.35-7.45) 05/26/23 15:43 ABG pCO2 35.0 mmHg (35.0-45.0) 05/26/23 15:43 ABG pO2 120.0 mmHg (80.0-100.0) H 05/26/23 15:43 ABG HCO3 22.7 mmol/L (22-26) 05/26/23 15:43 ABG O2 Saturation 99.0 % (90-100) 05/26/23 15:43 ABG Base Excess -1.3 mmol/L (-2.0-2.0) 05/26/23 15:43 Karel Test Pos 05/26/23 15:43 A-a Gradient 36.0 mmHg 05/26/23 15:43 FiO2 28.0 05/26/23 15:43 Blood Gas Comments Pt amarilys well cdn 05/26/23 15:43 Sodium 136 mmol/L (136-145) 05/29/23 04:30 Corrected Sodium 136 mmol/L (136-145) 05/29/23 04:30 Potassium 3.8 mmol/L (3.5-5.1) 05/29/23 04:30 Chloride 104 mmol/L (98-107) 05/29/23 04:30 Carbon Dioxide 24.2 mmol/L (21-32) 05/29/23 04:30 BUN 30 mg/dL (7-18) H 05/29/23 04:30 Creatinine 1.08 mg/dL (0.55-1.02) H 05/29/23 04:30 Est GFR (MDRD) Af Amer > 60 (>60) 05/29/23 04:30 Est GFR (MDRD) Non-Af 55 (>60) L 05/29/23 04:30 Glucose 113 mg/dL (65-99) H 05/29/23 04:30 Lactic Acid 1.5 mmol/L (0.4-2.0) 05/27/23 15:18 Calcium 8.3 mg/dL (8.5-10.1) L 05/29/23 04:30 Corrected Calcium 9.5 mg/dL (8.5-10.1) 05/29/23 04:30 Phosphorus 3.6 mg/dL (2.6-4.7) 05/27/23 04:21 Magnesium 1.9 mg/dL (2.0-2.9) L 05/29/23 04:30 Total Bilirubin 5.10 mg/dL (0.2-1.0) H 05/29/23 04:30 AST 85 Units/L (15-37) H 05/29/23 04:30 ALT 68 Units/L (12-78) 05/29/23 04:30 Alkaline Phosphatase 575 Units/L (46-116) H 05/29/23 04:30 Creatine Kinase 13 Units/L (26-192) L 05/27/23 03:06 Troponin I High Sens 14.0 ng/L (4.0-60.0) 05/27/23 03:06 Total Protein 4.3 g/dL (6.4-8.2) L 05/29/23 04:30 Albumin 2.5 g/dL (3.4-5.0) L 05/29/23 04:30 Globulin 1.8 g/dL (2.5-4.5) L 05/29/23 04:30 Albumin/Globulin Ratio 1.4 Ratio (1.1-2.1) 05/29/23 04:30 Prealbumin 5.7 mg/dL (18-35.7) L 05/28/23 04:13 Triglycerides 146 mg/dL (0-150) 05/27/23 04:21 Amylase 13 Units/L (25-115) L 05/26/23 14:36 Lipase 29 Units/L (73-393) L 05/26/23 14:36 Cortisol 21.0 ug/dL 05/26/23 14:36 Specimen Type Clean catch urine 05/26/23 20:10 Urine Color [place] (YELLOW) 05/26/23 20:10 Urine Appearance Cloudy (CLEAR) 05/26/23 20:10 Urine pH Cancelled 05/26/23 20:10 Ur Specific [place] Cancelled 05/26/23 20:10 Urine Protein Cancelled 05/26/23 20:10 Urine Glucose (UA) Cancelled 05/26/23 20:10 Urine Ketones Cancelled 05/26/23 20:10 Urine Blood Cancelled 05/26/23 20:10 Urine Nitrite Cancelled 05/26/23 20:10 Urine Bilirubin Cancelled 05/26/23 20:10 Urine Urobilinogen Cancelled 05/26/23 20:10 Ur Leukocyte Esterase Cancelled 05/26/23 20:10 Urine RBC 3-5 /HPF (0-3) A 05/26/23 20:10 Urine WBC 5-10 /HPF (0-5) A 05/26/23 20:10 Ur Squamous Epith Cells Few /HPF (NEGATIVE) 05/26/23 20:10 Ur Renal Epithelial Cell Few /HPF (NEGATIVE) 05/26/23 20:10 Urine Bacteria 2+ /HPF (NEGATIVE) 05/26/23 20:10 Hyaline Casts Many /LPF (NEGATIVE) 05/26/23 20:10 Ur Culture Indicated? Yes/culture set up 05/26/23 20:10 - Plan (1) Acute renal failure Status: Acute Qualifiers: Acute renal failure type: unspecified Qualified Code(s): N17.9 - Acute kidney failure, unspecified Plan: NORMAL SALINE AT 20 ML/HR,TPN AT 100 ML/HR, ALBUMIN 25% IV DAILY, INVANZ IV DAILY, HEPARIN 5000 UNITS SC Q8H, COLACE 100MG HX, ZOFRAN 4MG IV Q4H. RESUME HOME MEDICATIONS. PT/OT (2) Urinary tract infection Status: Acute Qualifiers: Urinary tract infection type: acute cystitis Hematuria presence: with hematuria Qualified Code(s): N30.01 - Acute cystitis with hematuria (3) Shock Status: Acute (4) Syncope Status: Acute Qualifiers: Syncope type: unspecified Qualified Code(s): R55 - Syncope and collapse (5) Generalized weakness Status: Acute Plan: PT/OT (6) Elevated liver function tests Status: Acute Plan: CONTINUE TO MONITOR (7) Hypomagnesemia Status: Acute Plan: MAGNESIUM REPLACEMENT (8) Multiple myeloma Status: Chronic Qualifiers: Multiple myeloma remission status: unspecified Qualified Code(s): C90.00 - Multiple myeloma not having achieved remission (9) Status post bone marrow transplant Status: Chronic Plan: REVERSE PRECAUTIONS
[2023-05-30] MEDS: HEPARIN SODIUM INJ 5000 UNITS SC SCH ×3 (02:06→18:00)
[2023-05-30 04:40] LABS: BASOPHILS # (AUTO) 0.1 X10^3/uL (0.0-0.1); BASOPHILS % (AUTO) 0.5 % (0.2-1.0); EOSINOPHILS # (AUTO) 8.6 x10^3/uL (0.0-0.2); EOSINOPHILS % (AUTO) 37.9 % (0.9-2.9); HEMATOCRIT 22.4 % (36.0-47.0); HEMOGLOBIN 7.7 g/dL (12.0-16.0); LYMPHOCYTES # (AUTO) 3.6 X10^3/uL (1.3-2.9); LYMPHOCYTES % (AUTO) 16.1 % (21.0-51.0); MEAN CORPUSCULAR HEMOGLOBIN 32.3 pg (27.0-34.0); MEAN CORPUSCULAR HGB CONC 34.5 g/dL (33.0-35.0); MEAN CORPUSCULAR VOLUME 93.7 fL (80.0-100.0); MONOCYTES # (AUTO) 1.6 x10^3/uL (0.3-0.8); MONOCYTES % (AUTO) 7.2 % (0.0-13.0); NEUTROPHILS # (AUTO) 8.7 x10^3/uL (2.2-4.8); NEUTROPHILS % (AUTO) 38.3 % (42.0-75.0); PLATELET COUNT 175 X10^3/uL (150.0-450.0); RED BLOOD COUNT 2.39 X10^6/uL (3.5-5.4); RED CELL DISTRIBUTION WIDTH 14.8 % (11.6-16.5); WHITE BLOOD COUNT 22.6 X10^3/uL (3.6-10.0)
[2023-05-30 05:08] LABS: ALANINE AMINOTRANSFERASE 101 Units/L (12-78); ALBUMIN 2.7 g/dL (3.4-5.0); ALKALINE PHOSPHATASE 620 Units/L (46-116); ASPARTATE AMINO TRANSFERASE 135 Units/L (15-37); BLOOD UREA NITROGEN 25 mg/dL (7-18); CALCIUM 8.8 mg/dL (8.5-10.1); CARBON DIOXIDE 23.4 mmol/L (21-32); CHLORIDE 104 mmol/L (98-107); COR CA(FOR HYPOALB) 9.8 mg/dL (8.5-10.1); CREATININE 1.01 mg/dL (0.55-1.02); GLUCOSE 99 mg/dL (65-99); MAGNESIUM 1.9 mg/dL (2.0-2.9); PHOSPHORUS 1.3 mg/dL (2.6-4.7); POTASSIUM 4.1 mmol/L (3.5-5.1); SODIUM 137 mmol/L (136-145); TOTAL PROTEIN 4.4 g/dL (6.4-8.2); eGFR NON BLACK RACES 59 (>60)
[2023-05-30 05:13] LABS: BAND NEUTROPHILS % 2 % (0-10); METAMYELOCYTES % 2; PLATELET MORPHOLOGY COMMENT NORMAL (NORMAL); SCHISTOCYTES PRESENT
[2023-05-30] MEDS ORDERED: CONSULT PHARMACY - POTASSIUM & MAGNESIUM XX SCH (06:00)
[2023-05-30] MEDS: ALBUMIN HUMAN 25%- 100 ML 100 ML IV SCH (08:31)
[2023-05-30] MEDS: INVanz INJ 1 GRAM VIAL 0.5 G in NS 100 ML IV 100 ML IV SCH (08:31)
[2023-05-30] MEDS: ZOVIRAX PO SCH ×2 (08:32→21:27)
[2023-05-30] MEDS: MAG-OX TAB PO SCH ×4 (08:32→21:27)
[2023-05-30] MEDS: ZOFRAN INJ 4 MG VIAL IVP PRN (08:38)
[2023-05-30] MEDS: MVI IV SCH ×12 (08:42→11:00)
[2023-05-30] MEDS: CLINIMIX IV SCH ×12 (08:42→11:00)
[2023-05-30] MEDS: TRACE ELEMENTS IV SCH ×12 (08:42→11:00)
[2023-05-30] MEDS: [UNRECOGNIZED DRUG - OTHER] IV SCH ×12 (08:42→11:00)
[2023-05-30] MEDS: NS 1,000 ML IV 1,000 ML IV SCH (09:35)
--- NOTE | 2023-05-30 11:37 | PCM.PROG ---
Progress Note Progress Note for Day of Date of Exam: 05/30/23 Subjective Subjective: Patient seen at bedside, no acute events overnight. She is admitted for ARF, UTI and generalized weakness. She is feeling better today. She states her appetite has improved. She had some nausea which resolved with zofran. Denies vomiting or diarrhea. She also has a hx of Multiple myeloma s/p bone marrow transplant. Labs/imaging reviewed - Hgb 7.7 AST/ALT 135/101 WBC 22.6 Urine Cx: contaminated Plan: will transfuse 2 units PRBCs, monitor Hgb. Continue Invanz. Continue current home medications. Zofran prn. Continue TPN. Continue pain control with Tramadol. Monitor AM labs/imaging. Past Medical Family Social History Past Med/Fam/Surg Hx: No changes since H&P Allergies: Allergies No Known Drug Allergies Allergy (Unknown, Verified 07/10/20 11:14) Onset Date: 07/10/2020 Sulfa (Sulfonamide Antibiotics) [SULFA] Allergy (Verified 09/02/22 18:00) Review of Systems ROS: No change since H&P Vital Signs and I&O's Vital Signs: Vital Signs Temperature 99.5 F Temperature 99.5 F Pulse Rate 101 Pulse Rate 94 Pulse Rate 89 Pulse Rate 93 Pulse Rate 99 Pulse Rate 90 Pulse Rate 95 Pulse Rate 97 Respiratory Rate 33 Respiratory Rate 24 Respiratory Rate 26 Respiratory Rate 27 Respiratory Rate 24 Respiratory Rate 26 Respiratory Rate 24 Respiratory Rate 25 Blood Pressure 97/60 Blood Pressure 100/53 Blood Pressure 100/55 Blood Pressure 106/56 Blood Pressure 108/58 Blood Pressure 105/55 Blood Pressure 108/54 Blood Pressure 104/55 O2 Sat by Pulse Oximetry 95 O2 Sat by Pulse Oximetry 93 O2 Sat by Pulse Oximetry 94 O2 Sat by Pulse Oximetry 94 O2 Sat by Pulse Oximetry 94 O2 Sat by Pulse Oximetry 93 O2 Sat by Pulse Oximetry 93 O2 Sat by Pulse Oximetry 92 Intake and Output: Intake & Output 05/27/23 05/28/23 05/29/23 05/30/23 23:59 23:59 23:59 23:59 Intake Total 3197 / 3197 3810 / 3810 2305 / 2305 501 / 501 Output Total 1400 / 1400 450 / 450 250 / 250 Balance 3197 / 3197 2410 / 2410 1855 / 1855 251 / 251 Physical Exam Oriented: Normal Eyes: Normal Ear: Normal Nose: Normal Throat: Normal Respiratory: Diminished Cardiovascular: Normal and Edema (mild swelling in both hands ) Auscultation: Bowel Sounds: Normal Tenderness: Normal Skin: Decreased Turgur Psychiatric: Normal Mood Description: Calm Affect: Normal Speech Pattern: Clear and Appropriate Laboratory and Diagnostics Result Diagrams: 05/30/23 04:11 05/30/23 04:11 Labs: 05/26/23 14:36 Blood Blood Culture - Final 05/26/23 14:26 Blood Blood Culture - Preliminary 05/26/23 20:10 Urine,Clean Catch Urine Culture - Final Laboratory WBC 22.6 X10^3/uL (3.6-10.0) H 05/30/23 04:11 RBC 2.39 X10^6/uL (3.5-5.4) L 05/30/23 04:11 Hgb 7.7 g/dL (12.0-16.0) L 05/30/23 04:11 Hct 22.4 % (36.0-47.0) L 05/30/23 04:11 MCV 93.7 fL (80.0-100.0) 05/30/23 04:11 MCH 32.3 pg (27.0-34.0) 05/30/23 04:11 MCHC 34.5 g/dL (33.0-35.0) 05/30/23 04:11 RDW 14.8 % (11.6-16.5) 05/30/23 04:11 Plt Count 175 X10^3/uL (150.0-450.0) 05/30/23 04:11 Plt Count Comment Adequate (ADEQUATE) 05/30/23 04:11 MPV 10.0 fL (7.4-11.0) 05/30/23 04:11 Neut % (Auto) 38.3 % (42.0-75.0) L 05/30/23 04:11 Lymph % (Auto) 16.1 % (21.0-51.0) L 05/30/23 04:11 [place] % (Auto) 7.2 % (0.0-13.0) 05/30/23 04:11 Eos % (Auto) 37.9 % (0.9-2.9) H 05/30/23 04:11 Baso % (Auto) 0.5 % (0.2-1.0) 05/30/23 04:11 Neut # (Auto) 8.7 x10^3/uL (2.2-4.8) H 05/30/23 04:11 Lymph # (Auto) 3.6 X10^3/uL (1.3-2.9) H 05/30/23 04:11 [place] # (Auto) 1.6 x10^3/uL (0.3-0.8) H 05/30/23 04:11 Eos # (Auto) 8.6 x10^3/uL (0.0-0.2) H 05/30/23 04:11 Baso # (Auto) 0.1 X10^3/uL (0.0-0.1) 05/30/23 04:11 Absolute Nucleated RBC 0.1 /100WBC 05/30/23 04:11 Total Counted 100 05/30/23 04:11 Neutrophils % (Manual) 39 % (39-76) 05/30/23 04:11 Band Neutrophils % 2 % (0-10) 05/30/23 04:11 Lymphocytes % (Manual) 14 % (13-43) 05/30/23 04:11 Monocytes % (Manual) 3 % (4-9) L 05/30/23 04:11 Eosinophils % (Manual) 40 % (0-6) H 05/30/23 04:11 Metamyelocytes % 2 05/30/23 04:11 Plt Morphology Comment Normal (NORMAL) 05/30/23 04:11 RBC Morphology Abnormal (NORMAL) A 05/30/23 04:11 Acanthocytes (Spur) Present 05/26/23 14:36 Schistocytes Present 05/30/23 04:11 PT 13.9 SECONDS (11.8-14.3) 05/26/23 14:36 INR Target Range - 05/26/23 14:36 INR 1.09 (0.8-1.3) 05/26/23 14:36 APTT 38.5 SECONDS (22.9-36.5) H 05/26/23 14:36 PTT Comment - 05/26/23 14:36 Sample Site Rr 05/26/23 15:43 ABG pH 7.420 (7.35-7.45) 05/26/23 15:43 ABG pCO2 35.0 mmHg (35.0-45.0) 05/26/23 15:43 ABG pO2 120.0 mmHg (80.0-100.0) H 05/26/23 15:43 ABG HCO3 22.7 mmol/L (22-26) 05/26/23 15:43 ABG O2 Saturation 99.0 % (90-100) 05/26/23 15:43 ABG Base Excess -1.3 mmol/L (-2.0-2.0) 05/26/23 15:43 Karel Test Pos 05/26/23 15:43 A-a Gradient 36.0 mmHg 05/26/23 15:43 FiO2 28.0 05/26/23 15:43 Blood Gas Comments Pt amarilys well cdn 05/26/23 15:43 Sodium 137 mmol/L (136-145) 05/30/23 04:11 Corrected Sodium TNP 05/30/23 04:11 Potassium 4.1 mmol/L (3.5-5.1) 05/30/23 04:11 Chloride 104 mmol/L (98-107) 05/30/23 04:11 Carbon Dioxide 23.4 mmol/L (21-32) 05/30/23 04:11 BUN 25 mg/dL (7-18) H 05/30/23 04:11 Creatinine 1.01 mg/dL (0.55-1.02) 05/30/23 04:11 Est GFR (MDRD) Af Amer > 60 (>60) 05/30/23 04:11 Est GFR (MDRD) Non-Af 59 (>60) 05/30/23 04:11 Glucose 99 mg/dL (65-99) 05/30/23 04:11 Lactic Acid 1.5 mmol/L (0.4-2.0) 05/27/23 15:18 Calcium 8.8 mg/dL (8.5-10.1) 05/30/23 04:11 Corrected Calcium 9.8 mg/dL (8.5-10.1) 05/30/23 04:11 Phosphorus 1.3 mg/dL (2.6-4.7) L 05/30/23 04:11 Magnesium 1.9 mg/dL (2.0-2.9) L 05/30/23 04:11 Total Bilirubin 7.20 mg/dL (0.2-1.0) H 05/30/23 04:11 AST 135 Units/L (15-37) H 05/30/23 04:11 ALT 101 Units/L (12-78) H 05/30/23 04:11 Alkaline Phosphatase 620 Units/L (46-116) H 05/30/23 04:11 Creatine Kinase 13 Units/L (26-192) L 05/27/23 03:06 Troponin I High Sens 14.0 ng/L (4.0-60.0) 05/27/23 03:06 Total Protein 4.4 g/dL (6.4-8.2) L 05/30/23 04:11 Albumin 2.7 g/dL (3.4-5.0) L 05/30/23 04:11 Globulin 1.7 g/dL (2.5-4.5) L 05/30/23 04:11 Albumin/Globulin Ratio 1.6 Ratio (1.1-2.1) 05/30/23 04:11 Prealbumin 5.7 mg/dL (18-35.7) L 05/28/23 04:13 Triglycerides 144 mg/dL (0-150) 05/30/23 04:11 Amylase 13 Units/L (25-115) L 05/26/23 14:36 Lipase 29 Units/L (73-393) L 05/26/23 14:36 Cortisol 21.0 ug/dL 05/26/23 14:36 Specimen Type Clean catch urine 05/26/23 20:10 Urine Color [place] (YELLOW) 05/26/23 20:10 Urine Appearance Cloudy (CLEAR) 05/26/23 20:10 Urine pH Cancelled 05/26/23 20:10 Ur Specific [place] Cancelled 05/26/23 20:10 Urine Protein Cancelled 05/26/23 20:10 Urine Glucose (UA) Cancelled 05/26/23 20:10 Urine Ketones Cancelled 05/26/23 20:10 Urine Blood Cancelled 05/26/23 20:10 Urine Nitrite Cancelled 05/26/23 20:10 Urine Bilirubin Cancelled 05/26/23 20:10 Urine Urobilinogen Cancelled 05/26/23 20:10 Ur Leukocyte Esterase Cancelled 05/26/23 20:10 Urine RBC 3-5 /HPF (0-3) A 05/26/23 20:10 Urine WBC 5-10 /HPF (0-5) A 05/26/23 20:10 Ur Squamous Epith Cells Few /HPF (NEGATIVE) 05/26/23 20:10 Ur Renal Epithelial Cell Few /HPF (NEGATIVE) 05/26/23 20:10 Urine Bacteria 2+ /HPF (NEGATIVE) 05/26/23 20:10 Hyaline Casts Many /LPF (NEGATIVE) 05/26/23 20:10 Ur Culture Indicated? Yes/culture set up 05/26/23 20:10 Plan (1) Anemia: Status: Acute (2) Acute renal failure: Status: Acute Qualifiers: Acute renal failure type: unspecified Qualified Code(s): N17.9 - Acute kidney failure, unspecified (3) Urinary tract infection: Status: Acute Qualifiers: Hematuria presence: with hematuria Urinary tract infection type: acute cystitis Qualified Code(s): N30.01 - Acute cystitis with hematuria (4) Generalized weakness: Status: Acute Plan: PT/OT (5) Shock: Status: Acute (6) Syncope: Status: Acute Qualifiers: Syncope type: unspecified Qualified Code(s): R55 - Syncope and collapse (7) Elevated liver function tests: Status: Acute Plan: CONTINUE TO MONITOR (8) Hypomagnesemia: Status: Acute Plan: MAGNESIUM REPLACEMENT (9) Multiple myeloma: Status: Chronic Qualifiers: Multiple myeloma remission status: unspecified Qualified Code(s): C90.00 - Multiple myeloma not having achieved remission (10) Status post bone marrow transplant: Status: Chronic Plan: REVERSE PRECAUTIONS
[2023-05-30] MEDS ORDERED: NS 250 ML IV 250 ML IV ONE ×2 (13:55→17:01)
[2023-05-30] MEDS: ULTRAM PO PRN ×2 (15:38→21:35)
[2023-05-30] MEDS ORDERED: DRUG FILTER EXTENSION SET ONE (20:38)
[2023-05-30 21:13] LABS: HEMATOCRIT 27.8 % (36.0-47.0); HEMOGLOBIN 9.5 g/dL (12.0-16.0)
[2023-05-30] MEDS: COLACE CAP 100 MG PO SCH (21:26)
[2023-05-30] MEDS: LIPOSYN III 20% 100ML 100 ML IV SCH (21:27)
[2023-05-30] MEDS: DAPSONE PO SCH (21:27)
[2023-05-30] MEDS ORDERED: MOTRIN TAB 800 MG PO PRN (21:42)
[2023-05-31] MEDS: CLINIMIX IV SCH ×18 (01:03→21:09)
[2023-05-31] MEDS: MVI IV SCH ×18 (01:03→21:09)
[2023-05-31] MEDS: TRACE ELEMENTS IV SCH ×18 (01:03→21:09)
[2023-05-31] MEDS: [UNRECOGNIZED DRUG - OTHER] IV SCH ×18 (01:03→21:09)
[2023-05-31] MEDS: HEPARIN SODIUM INJ 5000 UNITS SC SCH ×3 (01:20→17:34)
[2023-05-31 04:56] LABS: ALANINE AMINOTRANSFERASE 123 Units/L (12-78); ALBUMIN 2.6 g/dL (3.4-5.0); ALKALINE PHOSPHATASE 644 Units/L (46-116); ASPARTATE AMINO TRANSFERASE 142 Units/L (15-37); BLOOD UREA NITROGEN 24 mg/dL (7-18); CALCIUM 8.8 mg/dL (8.5-10.1); CARBON DIOXIDE 24.2 mmol/L (21-32); CHLORIDE 102 mmol/L (98-107); COR CA(FOR HYPOALB) 9.9 mg/dL (8.5-10.1); CREATININE 0.92 mg/dL (0.55-1.02); GLUCOSE 98 mg/dL (65-99); POTASSIUM 4.5 mmol/L (3.5-5.1); SODIUM 135 mmol/L (136-145); TOTAL PROTEIN 4.3 g/dL (6.4-8.2); eGFR NON BLACK RACES > 60 (>60)
[2023-05-31 05:00] LABS: BASOPHILS # (AUTO) 0.1 X10^3/uL (0.0-0.1); BASOPHILS % (AUTO) 0.6 % (0.2-1.0); EOSINOPHILS # (AUTO) 9.8 x10^3/uL (0.0-0.2); EOSINOPHILS % (AUTO) 40.5 % (0.9-2.9); HEMATOCRIT 27.5 % (36.0-47.0); HEMOGLOBIN 9.5 g/dL (12.0-16.0); LYMPHOCYTES # (AUTO) 4.8 X10^3/uL (1.3-2.9); LYMPHOCYTES % (AUTO) 19.8 % (21.0-51.0); MEAN CORPUSCULAR HEMOGLOBIN 31.4 pg (27.0-34.0); MEAN CORPUSCULAR HGB CONC 34.4 g/dL (33.0-35.0); MEAN CORPUSCULAR VOLUME 91.3 fL (80.0-100.0); MEAN PLATELET VOLUME 9.8 fL (7.4-11.0); MONOCYTES # (AUTO) 1.6 x10^3/uL (0.3-0.8); MONOCYTES % (AUTO) 6.7 % (0.0-13.0); NEUTROPHILS # (AUTO) 7.8 x10^3/uL (2.2-4.8); NEUTROPHILS % (AUTO) 32.4 % (42.0-75.0); PLATELET COUNT 157 X10^3/uL (150.0-450.0); RED BLOOD COUNT 3.01 X10^6/uL (3.5-5.4); RED CELL DISTRIBUTION WIDTH 15.8 % (11.6-16.5); WHITE BLOOD COUNT 24.1 X10^3/uL (3.6-10.0)
[2023-05-31 05:16] LABS: BAND NEUTROPHILS % 1 % (0-10); METAMYELOCYTES % 1; PLATELET MORPHOLOGY COMMENT NORMAL (NORMAL)
[2023-05-31 05:17] LABS: SCHISTOCYTES PRESENT
[2023-05-31] MEDS: ZOVIRAX PO SCH ×2 (08:21→21:06)
[2023-05-31] MEDS: ALBUMIN HUMAN 25%- 100 ML 100 ML IV SCH (08:21)
[2023-05-31] MEDS: MAG-OX TAB PO SCH ×2 (08:22→21:06)
[2023-05-31] MEDS: NS 1,000 ML IV 1,000 ML IV SCH (08:30)
[2023-05-31] MEDS ORDERED: INVanz INJ 1 GRAM VIAL 1 G in NS 100 ML IV 100 ML IV SCH (09:00)
[2023-05-31] MEDS ORDERED: OMNIPAQUE 350 mg/mL 100 mL BTL 0 ML ONE (10:06)
[2023-05-31] MEDS: MAXIPIME VIAL 1 GRAM 1 G in NS 50 ML IV 50 ML IV SCH ×3 (10:59→21:07)
[2023-05-31] MEDS: ULTRAM PO PRN ×2 (15:39→21:07)
[2023-05-31] MEDS: ZOFRAN INJ 4 MG VIAL IVP PRN (19:05)
[2023-05-31] MEDS: COLACE CAP 100 MG PO SCH (21:06)
[2023-05-31] MEDS: DAPSONE PO SCH (21:06)
[2023-06-01] MEDS: HEPARIN SODIUM INJ 5000 UNITS SC SCH (02:14)
[2023-06-01 05:49] LABS: BASOPHILS # (AUTO) 0.1 X10^3/uL (0.0-0.1); BASOPHILS % (AUTO) 0.6 % (0.2-1.0); EOSINOPHILS # (AUTO) 8.4 x10^3/uL (0.0-0.2); EOSINOPHILS % (AUTO) 40.1 % (0.9-2.9); HEMOGLOBIN 8.7 g/dL (12.0-16.0); LYMPHOCYTES # (AUTO) 4.4 X10^3/uL (1.3-2.9); MEAN CORPUSCULAR HEMOGLOBIN 31.8 pg (27.0-34.0); MEAN CORPUSCULAR HGB CONC 34.7 g/dL (33.0-35.0); MEAN CORPUSCULAR VOLUME 91.8 fL (80.0-100.0); MONOCYTES # (AUTO) 1.1 x10^3/uL (0.3-0.8); MONOCYTES % (AUTO) 5.1 % (0.0-13.0); NEUTROPHILS % (AUTO) 33.2 % (42.0-75.0); PLATELET COUNT 127 X10^3/uL (150.0-450.0); RED BLOOD COUNT 2.73 X10^6/uL (3.5-5.4); RED CELL DISTRIBUTION WIDTH 16.2 % (11.6-16.5)
[2023-06-01] MEDS: MAXIPIME VIAL 1 GRAM 1 G in NS 50 ML IV 50 ML IV SCH (05:57)
[2023-06-01 06:02] VITALS: RESP 25
[2023-06-01 06:05] LABS: ALANINE AMINOTRANSFERASE 106 Units/L (12-78); ALBUMIN 2.6 g/dL (3.4-5.0); ALKALINE PHOSPHATASE 578 Units/L (46-116); ASPARTATE AMINO TRANSFERASE 97 Units/L (15-37); BLOOD UREA NITROGEN 26 mg/dL (7-18); CALCIUM 8.9 mg/dL (8.5-10.1); CARBON DIOXIDE 22.8 mmol/L (21-32); CHLORIDE 102 mmol/L (98-107); CREATININE 0.95 mg/dL (0.55-1.02); GLUCOSE 82 mg/dL (65-99); POTASSIUM 4.1 mmol/L (3.5-5.1); SODIUM 136 mmol/L (136-145); TOTAL PROTEIN 4.1 g/dL (6.4-8.2); eGFR NON BLACK RACES > 60 (>60)
[2023-06-01 06:08] LABS: BAND NEUTROPHILS % 1 % (0-10); METAMYELOCYTES % 2; PLATELET MORPHOLOGY COMMENT NORMAL (NORMAL); SCHISTOCYTES PRESENT
[2023-06-01 06:09] LABS: POIKILOCYTOSIS PRESENT
[2023-06-01 07:44] VITALS: TEMP 97.6
[2023-06-01 08:03] VITALS: BP 102/56; PULSE 80; O2SAT 84
--- NOTE | 2023-06-01 08:47 | PCM.PROG ---
Progress Note Progress Note for Day of Date of Exam: 05/31/23 Subjective Subjective: Patient seen at bedside, no acute events overnight. Patient still complains of feeling weak. She had some nausea, denies vomiting or diarrhea. Patient has been afebrile. She appears to be jaundiced today. Discussed lab results in detail with patient and . Patient's WBC has increased along with LFTs, Alk phos and Total bilirubin. Patient has a hx of multiple myeloma, had bone marrow transplant in [place] in [place] in February. Labs/imaging reviewed - Hgb 9.5 WBC 34.1 AST/ALT: 142/123 Total Bilirubin 8.80 Alk Phos 644 - Urine Cx: contamination, no growth - Blood Cx: no growth Plan: Discussed lab results with patient, had ordered CTAP with contrast to evaluate abdomen and liver but patient refused to have any tests done. Check direct bilirubin, ammonia, lipase, amylase and lactic acid. Will add Cefepime, continue Invanz. Monitor labs. Discussed transfer to [place]. Patient agreed to be transferred since her transplant team is there. RN spoke to transfer iron operator. Discussed case with accepting physician Dr Clemente. Patient accepted for transfer in the AM. Time spent for clinical assessment, reviewing labs/imaging, physical exam, decision making, discussing with other specialists and medical records greater than 60 mins. Past Medical Family Social History Past Med/Fam/Surg Hx: No changes since H&P Allergies: Allergies Sulfa (Sulfonamide Antibiotics) [SULFA] Allergy (Verified 09/02/22 18:00) Review of Systems ROS: No change since H&P Vital Signs and I&O's Vital Signs: Vital Signs Temperature 97.6 F Temperature 98.0 F Pulse Rate 80 Pulse Rate 95 Pulse Rate 93 Pulse Rate 75 Pulse Rate 77 Pulse Rate 73 Pulse Rate 72 Pulse Rate 83 Pulse Rate 73 Respiratory Rate 25 Respiratory Rate 23 Respiratory Rate 30 Respiratory Rate 34 Respiratory Rate 27 Respiratory Rate 19 Blood Pressure 102/56 Blood Pressure 83/50 Blood Pressure 83/51 Blood Pressure 109/58 Blood Pressure 102/59 Blood Pressure 99/57 Blood Pressure 93/59 Blood Pressure 90/55 Blood Pressure 94/56 O2 Sat by Pulse Oximetry 84 O2 Sat by Pulse Oximetry 94 O2 Sat by Pulse Oximetry 79 O2 Sat by Pulse Oximetry 94 O2 Sat by Pulse Oximetry 95 O2 Sat by Pulse Oximetry 95 O2 Sat by Pulse Oximetry 94 O2 Sat by Pulse Oximetry 96 O2 Sat by Pulse Oximetry 93 Intake and Output: Intake & Output 05/29/23 05/30/23 05/31/23 06/01/23 23:59 23:59 23:59 23:59 Intake Total 2305 / 2305 3008 / 3008 2382 / 2382 611 / 611 Output Total 450 / 450 250 / 250 Balance 1855 / 1855 2758 / 2758 2382 / 2382 611 / 611 Physical Exam Oriented: Normal Eyes: Normal and Other (scleral icterus noted ) Ear: Normal Nose: Normal Throat: Normal Respiratory: Diminished Cardiovascular: Normal and Edema (mild swelling in both hands ) Auscultation: Bowel Sounds: Normal Tenderness: Normal Skin: Decreased Turgur and Other (jaundice noted ) Musculoskeletal: Normal Psychiatric: Normal Mood Description: Calm Affect: Normal Speech Pattern: Clear and Appropriate Laboratory and Diagnostics Result Diagrams: 06/01/23 04:08 06/01/23 04:08 Labs: 05/26/23 14:36 Blood Blood Culture - Final 05/26/23 14:26 Blood Blood Culture - Preliminary 05/26/23 20:10 Urine,Clean Catch Urine Culture - Final Laboratory WBC 21.0 X10^3/uL (3.6-10.0) H 06/01/23 04:08 RBC 2.73 X10^6/uL (3.5-5.4) L 06/01/23 04:08 Hgb 8.7 g/dL (12.0-16.0) L 06/01/23 04:08 Hct 25.0 % (36.0-47.0) L 06/01/23 04:08 MCV 91.8 fL (80.0-100.0) 06/01/23 04:08 MCH 31.8 pg (27.0-34.0) 06/01/23 04:08 MCHC 34.7 g/dL (33.0-35.0) 06/01/23 04:08 RDW 16.2 % (11.6-16.5) 06/01/23 04:08 Plt Count 127 X10^3/uL (150.0-450.0) L 06/01/23 04:08 Plt Count Comment Decreased (ADEQUATE) A 06/01/23 04:08 MPV 10.0 fL (7.4-11.0) 06/01/23 04:08 Neut % (Auto) 33.2 % (42.0-75.0) L 06/01/23 04:08 Lymph % (Auto) 21.0 % (21.0-51.0) 06/01/23 04:08 Ceiba % (Auto) 5.1 % (0.0-13.0) 06/01/23 04:08 Eos % (Auto) 40.1 % (0.9-2.9) H 06/01/23 04:08 Baso % (Auto) 0.6 % (0.2-1.0) 06/01/23 04:08 Neut # (Auto) 7.0 x10^3/uL (2.2-4.8) H 06/01/23 04:08 Lymph # (Auto) 4.4 X10^3/uL (1.3-2.9) H 06/01/23 04:08 [place] # (Auto) 1.1 x10^3/uL (0.3-0.8) H 06/01/23 04:08 Eos # (Auto) 8.4 x10^3/uL (0.0-0.2) H 06/01/23 04:08 Baso # (Auto) 0.1 X10^3/uL (0.0-0.1) 06/01/23 04:08 Absolute Nucleated RBC 0.1 /100WBC 06/01/23 04:08 Total Counted 100 06/01/23 04:08 Neutrophils % (Manual) 35 % (39-76) L 06/01/23 04:08 Band Neutrophils % 1 % (0-10) 06/01/23 04:08 Lymphocytes % (Manual) 11 % (13-43) L 06/01/23 04:08 Monocytes % (Manual) 3 % (4-9) L 06/01/23 04:08 Eosinophils % (Manual) 46 % (0-6) H 06/01/23 04:08 Metamyelocytes % 2 06/01/23 04:08 Atypical Lymphocytes 2 06/01/23 04:08 Plt Morphology Comment Normal (NORMAL) 06/01/23 04:08 RBC Morphology Abnormal (NORMAL) A 06/01/23 04:08 Poikilocytosis Present 06/01/23 04:08 Acanthocytes (Spur) Present 05/26/23 14:36 Schistocytes Present 06/01/23 04:08 PT 13.9 SECONDS (11.8-14.3) 05/26/23 14:36 INR Target Range - 05/26/23 14:36 INR 1.09 (0.8-1.3) 05/26/23 14:36 APTT 38.5 SECONDS (22.9-36.5) H 05/26/23 14:36 PTT Comment - 05/26/23 14:36 Sample Site Rr 05/26/23 15:43 ABG pH 7.420 (7.35-7.45) 05/26/23 15:43 ABG pCO2 35.0 mmHg (35.0-45.0) 05/26/23 15:43 ABG pO2 120.0 mmHg (80.0-100.0) H 05/26/23 15:43 ABG HCO3 22.7 mmol/L (22-26) 05/26/23 15:43 ABG O2 Saturation 99.0 % (90-100) 05/26/23 15:43 ABG Base Excess -1.3 mmol/L (-2.0-2.0) 05/26/23 15:43 Karel Test Pos 05/26/23 15:43 A-a Gradient 36.0 mmHg 05/26/23 15:43 FiO2 28.0 05/26/23 15:43 Blood Gas Comments Pt amarilys well cdn 05/26/23 15:43 Sodium 136 mmol/L (136-145) 06/01/23 04:08 Corrected Sodium TNP 06/01/23 04:08 Potassium 4.1 mmol/L (3.5-5.1) 06/01/23 04:08 Chloride 102 mmol/L (98-107) 06/01/23 04:08 Carbon Dioxide 22.8 mmol/L (21-32) 06/01/23 04:08 BUN 26 mg/dL (7-18) H 06/01/23 04:08 Creatinine 0.95 mg/dL (0.55-1.02) 06/01/23 04:08 Est GFR (MDRD) Af Amer > 60 (>60) 06/01/23 04:08 Est GFR (MDRD) Non-Af > 60 (>60) 06/01/23 04:08 Glucose 82 mg/dL (65-99) 06/01/23 04:08 Lactic Acid 1.0 mmol/L (0.4-2.0) 05/31/23 11:30 Calcium 8.9 mg/dL (8.5-10.1) 06/01/23 04:08 Corrected Calcium 10.0 mg/dL (8.5-10.1) 06/01/23 04:08 Phosphorus 1.3 mg/dL (2.6-4.7) L 05/30/23 04:11 Magnesium 1.9 mg/dL (2.0-2.9) L 05/30/23 04:11 Total Bilirubin 10.50 mg/dL (0.2-1.0) H 06/01/23 04:08 Direct Bilirubin 7.60 mg/dL (0-0.2) H* 05/31/23 11:30 AST 97 Units/L (15-37) H 06/01/23 04:08 ALT 106 Units/L (12-78) H 06/01/23 04:08 Alkaline Phosphatase 578 Units/L (46-116) H 06/01/23 04:08 Ammonia < 10 umol/L (11-32) L 05/31/23 11:30 Creatine Kinase 13 Units/L (26-192) L 05/27/23 03:06 Troponin I High Sens 14.0 ng/L (4.0-60.0) 05/27/23 03:06 Total Protein 4.1 g/dL (6.4-8.2) L 06/01/23 04:08 Albumin 2.6 g/dL (3.4-5.0) L 06/01/23 04:08 Globulin 1.5 g/dL (2.5-4.5) L 06/01/23 04:08 Albumin/Globulin Ratio 1.7 Ratio (1.1-2.1) 06/01/23 04:08 Prealbumin 5.7 mg/dL (18-35.7) L 05/28/23 04:13 Triglycerides 144 mg/dL (0-150) 05/30/23 04:11 Amylase 15 Units/L (25-115) L 05/31/23 11:30 Lipase 66 Units/L (73-393) L 05/31/23 11:30 Cortisol 21.0 ug/dL 05/26/23 14:36 Specimen Type Clean catch urine 05/26/23 20:10 Urine Color [place] (YELLOW) 05/26/23 20:10 Urine Appearance Cloudy (CLEAR) 05/26/23 20:10 Urine pH Cancelled 05/26/23 20:10 Ur Specific [place] Cancelled 05/26/23 20:10 Urine Protein Cancelled 05/26/23 20:10 Urine Glucose (UA) Cancelled 05/26/23 20:10 Urine Ketones Cancelled 05/26/23 20:10 Urine Blood Cancelled 05/26/23 20:10 Urine Nitrite Cancelled 05/26/23 20:10 Urine Bilirubin Cancelled 05/26/23 20:10 Urine Urobilinogen Cancelled 05/26/23 20:10 Ur Leukocyte Esterase Cancelled 05/26/23 20:10 Urine RBC 3-5 /HPF (0-3) A 05/26/23 20:10 Urine WBC 5-10 /HPF (0-5) A 05/26/23 20:10 Ur Squamous Epith Cells Few /HPF (NEGATIVE) 05/26/23 20:10 Ur Renal Epithelial Cell Few /HPF (NEGATIVE) 05/26/23 20:10 Urine Bacteria 2+ /HPF (NEGATIVE) 05/26/23 20:10 Hyaline Casts Many /LPF (NEGATIVE) 05/26/23 20:10 Ur Culture Indicated? Yes/culture set up 05/26/23 20:10 Blood Type O POSITIVE 05/30/23 11:28 Antibody Screen Negative 05/30/23 11:28 Crossmatch See Detail 05/30/23 11:28 Plan (1) Transaminitis: Status: Acute (2) Hyperbilirubinemia: Status: Acute (3) Jaundice: Status: Acute (4) Anemia: Status: Acute (5) Urinary tract infection: Status: Acute Qualifiers: Hematuria presence: with hematuria Urinary tract infection type: acute cystitis Qualified Code(s): N30.01 - Acute cystitis with hematuria (6) Generalized weakness: Status: Acute Plan: PT/OT (7) Syncope: Status: Acute Qualifiers: Syncope type: unspecified Qualified Code(s): R55 - Syncope and collapse (8) Multiple myeloma: Status: Chronic Qualifiers: Multiple myeloma remission status: unspecified Qualified Code(s): C90.00 - Multiple myeloma not having achieved remission (9) Status post bone marrow transplant: Status: Chronic Plan: REVERSE PRECAUTIONS (10) Acute renal failure: Status: Acute Qualifiers: Acute renal failure type: unspecified Qualified Code(s): N17.9 - Acute kidney failure, unspecified
== END 2023-06-01 08:15 | disposition short-term general hospital (02) | DRG 683 ==
LOC: ICU
PROVIDERS: ADMIT Internal Medicine; ATTEND Internal Medicine
DX: N17.8 Other acute kidney failure; E83.42 Hypomagnesemia; R57.9 Shock, unspecified; R42 Dizziness and giddiness; Z94.81 Bone marrow transplant status; M79.672 Pain in left foot; R74.01 Elevation of levels of liver transaminase levels; N30.01 Acute cystitis with hematuria; R17 Unspecified jaundice; R79.1 Abnormal coagulation profile; R53.1 Weakness; D64.89 Other specified anemias; C90.00 Multiple myeloma not having achieved remission; E86.0 Dehydration